=== PATIENT | male | born 1950 | race American Indian/Alaskan Native ===

== ENCOUNTER 2019-04-26 11:44 | Inpatient (IN) | payer MEDICARE, OTHER ==
[~2019-04-26] VITALS: Ht 172.7 cm; Wt 70.3 kg
[2019-04-26] MEDS ORDERED: NORVASC10 MG PO (14:15)
[2019-04-26] MEDS ORDERED: CELEXA40 MG PO (14:15)
[2019-04-26 14:35] VITALS: BMI 23.6
--- NOTE | 2019-04-26 14:45 | NUR ---
PT ADMISSION COMPLETE. VSS. SEE FLOWSHEET. FALL PRECAUTIONS IN PLACE. PT DENIES FURTHER NEEDS. BED IS IN THE LOWEST POSITION. CALL LIGHT AND BEDSIDE TABLE ARE WITHIN REACH. SIDE RAILS X 2. CJ ALARM IS ON AND WORKING. WILL CONT TO MONITOR.
--- NOTE | 2019-04-26 15:00 | NUR ---
22G TO LEFT FA X 1 ATTEMPT. PT TOLERATED WELL.
[2019-04-26 15:05] VITALS: BP 103/76
--- NOTE | 2019-04-26 18:04 | NUR ---
PT REFUSES NON SKID SOCKS AT THIS TIME.
--- NOTE | 2019-04-26 18:16 | NUR ---
PT WITH EPISODE OF BOWEL AND BLADDER INCONTINENCE. NEW COMPLETE BED CHANGE. PT CLEANED AND NEW BRIEF PLACED. CJ ALARM IS ON AND WORKING. BED IS IN THE LOWEST POSITION. CALL LIGHT AND BEDSIDE TABLE ARE WITHIN REACH. SIDE RAILS X 2. PT DENIES FURTHER NEEDS. WILL CONT TO MONITOR.
--- NOTE | 2019-04-26 20:00 | NUR ---
ASSESSMENT PER FLOWSHEET. IV PATENT LEFT AC OF NS AT 25CC'S/HR. RT HAND CONTRACTED FROM OLD CVA. RT LEG WEAK.INC BOWEL AND BLADDER COMPLETE LINENS CHANGED.
[2019-04-26 20:43] VITALS: BP 131/75
--- NOTE | 2019-04-26 22:00 | NUR ---
RESTING QUIETLY RESPIRATIONS WITH EASE AND UNLABORED.
--- NOTE | 2019-04-27 | NUR ---
INC URINE COMPLETE LINENS CHANGED.
--- NOTE | 2019-04-27 | HP ---
PATIENT: MILLA PANDEY MEDICAL RECORD: [id number] ACCOUNT: [id number] LOCATION:D.MS [facility] : 54 ADMISSION DATE: 04/26/19 PCP: JOAQUIN PATEL MD HISTORY AND PHYSICAL EXAMINATION DATE OF ADMISSION: 04/26/2019. CHIEF COMPLAINT: Pain in her right leg, unable to bear weight. HISTORY OF PRESENT ILLNESS: This is a 69-year-old white male followed by Dr. Patel, who was brought in by his daughter. On 04/23/2019, he was trying to get into his car, somehow he slipped down, but not all the way to the ground. He states he did not fall and land on the ground. The patient has had a stroke and has very little use of his right arm and leg. He has an AFO that he wears on his right leg. Since 04/23, he is really not able to bear weight on his leg. He complains of pain, especially laterally and just below the knee. His daughter who currently lives in [place] but is in [facility] now is in town until she leaves on 05/29/2019. The patient lives alone in [place], send him over to [place] for CT of his tib-fib because plain film x-ray was not able to be done correctly because of his weakness and the CT shows severely osteopenic bones and there are acute fractures of the lateral tibial plateau and proximal fibular head. The patient is now admitted and orthopedics is consulted. PAST MEDICAL AND SURGICAL HISTORY: The patient has suffered a stroke on 12/11/2014 and he has significant deficits on the right side. He also has depression and has hypertension. PAST SURGICAL HISTORY: He fell and broke his right hip and had surgery by Dr. Pressley on 08/29/2016, and later that year, he had the blade removed from the right hip area. ALLERGIES: REPORTED TO [facility]. MEDICATIONS: Citalopram 40 mg a day and amlodipine 10 mg a day. HABITS: Former smoker. Occasional alcohol. Denies drug use. FAMILY HISTORY: Father with arthritis. Mother with dementia. SOCIAL HISTORY: The patient lives alone in [place]. REVIEW OF SYSTEMS: GENERAL: No major weight changes. HEENT: No particular sinus or allergy problems. RESPIRATORY: No history of emphysema or asthma. CARDIAC: He has no known heart trouble. GASTROINTESTINAL: Denies diarrhea, constipation, or heartburn. GENITOURINARY: No significant problems there. MUSCULOSKELETAL: He had a right foot drop and considerable right-sided deficits from stroke in 2015. PSYCHIATRIC: He has depression. PHYSICAL EXAMINATION: VITAL SIGNS: Temperature 99.1, pulse 92, respirations 18, blood pressure HISTORY AND PHYSICAL [id number] DANNIE,MILLA M 103/76, and O2 sat 97%. The patient is awake and alert. He is in wheelchair in our office. HEENT: Unremarkable. NECK: Supple. No JVD or bruit. HEART: Regular rate and rhythm. LUNGS: Clear. ABDOMEN: Soft. EXTREMITIES: The right knee looks a little swollen. There is tenderness to palpation anterolaterally just below the knee. There is no significant ecchymosis. NEUROLOGIC: The patient has significant deficits on the right arm and right leg since suffering a stroke in 2014. LABS: Pending. CT of the right tib-fib without contrast shows acute fractures of the lateral tibial plateau and proximal fibular head on the right. There is significant diffuse osteopenia and a suggestion of small knee effusion. ASSESSMENT: 1. Tibial plateau fracture. 2. Proximal fibular head fracture, right. 3. Old cerebrovascular accident with right-sided weakness. 4. History of hypertension. 5. History of depression. PLAN: The patient is admitted. Orthopedics is consulted. Tests and procedures as warranted. TRANSINT:[id number] Voice Confirmation ID: [id number] DOCUMENT ID: [id number] SARA BARNARD MD at 0000 CC: [id number] DICTATION DATE: 04/26/191703 SQL SSRS SSIS DEVELOPER: 04/26/192011 ADM IN [place] [id number] [place] [id number]
[2019-04-27 01:15] VITALS: BP 116/75
--- NOTE | 2019-04-27 03:17 | NUR ---
EYES CLOSED RESPIRATIONS WITH EASE AND UNLABORED.
[2019-04-27 05:02] VITALS: BP 130/64
[2019-04-27 05:40] LABS: BASOPHILS 0.4 % (0-2); EOSINOPHILS 2.1 % (0-7); HEMATOCRIT 39.6 % (42.0-54.0); HEMOGLOBIN 13.2 g/dL (13.5-17.5); IMMATURE GRANULOCYTES 0.2 % (0-5); LYMPHOCYTES 27.3 % (15-50); MCH 32.8 pg (26.0-34.0); MCHC 33.3 g/dL (31.0-37.0); MCV 98.3 fL (80.0-100.0); MEAN PLATELET VOLUME 9.7 fL (7.4-10.4); MONOCYTES 9.4 % (2-11); NEUTROPHILS 60.6 % (40-80); PLATELET COUNT 282 10x3/uL (130-400); RBC 4.03 10x6/uL (4.20-6.10); RDW 13.7 % (11.5-14.5); WBC 8.1 10x3/uL (4.8-10.8)
[2019-04-27 05:55] LABS: CALC OSMOLALITY 284 mosm/kg (275-300); CALCIUM 8.5 mg/dL (8.5-10.1); CARBON DIOXIDE 30.3 mmol/L (21.0-32.0); CHLORIDE - SERUM 106 mmol/L (98-107); CREATININE - SERUM 0.7 mg/dL (0.6-1.3); GLUCOSE 95 mg/dL (74-106); SODIUM 143 mmol/L (136-145); UREA NITROGEN 13 mg/dL (7-18); eGFR NON AFRICAN AMERICAN > 90 mL/min (90-120)
[2019-04-27 08:22] VITALS: BP 121/78
--- NOTE | 2019-04-27 08:48 | NUR ---
PATIENT REFUSED TO HAVE IV FLUIDS RUNNING, STATED HE IS TIRED OF HEARING IT BEEP, PT ROLLED OVER AND WENT BACK TO SLEEP NO OTHER NEEDS LLEE SUB PRIOR
[2019-04-27 11:33] VITALS: BP 100/58
--- NOTE | 2019-04-27 14:56 | MORECARE ---
CASE MANAGEMENT DISCHARGE SUMMARY PATIENT: MILLA PANDEY UNIT: [id number] ADM DATE: 04/26/19 AGE: 69 : 52 SEX: M ROOM/BED: D.2230 AUTHOR: LELE VEGA PHYSICIAN: REFERRING PHYSICIAN: JOAQUIN PATEL MD DATE OF SERVICE: 04/27/19 Discharge Plan Patient Name: MILLA PANDEY [facility] [facility] 1950 Planned Disposition: Home Anticipated Discharge Date: 04/28/19 Discharge Date: Expected LOS: 2 Initial Reviewer: [email or web address] Initial Review Date: 04/27/2019 Generated: 04/27/19 3:56 pm DCPIA - Discharge Planning Initial Assessment Updated by [email or web address]: Leticia Miller on 04/27/19 2:55 pm * Is the patient Alert and Oriented? Yes * How many steps to enter\exit or inside your home? 0/0 * PCP Dr. Patel * Pharmacy [facility] on [address] * Preadmission Environment Home Alone * ADLs Partial Dependent * Partial ADLs (Assistance needed) Ambulation * Equipment Wheelchair * List name and contact numbers for known caregivers / representatives who currently or will assist patient after discharge: Eve Pandey - [facility] [place] - [phone] [place] [facility] - [phone] * Verbal permission to speak to the caregivers and representatives has been obtained from the patient. Yes * Community resources currently utilized None * Additional services required to return to the preadmission environment? Yes * Can the patient safely return to the preadmission environment? Yes * Has this patient been hospitalized within the prior 30 days at any hospital? No Patient Name: MILLA PANDEY Page [id number] at 1456 All edits/amendments must be made on the electronic document DICTATION DATE: 04/27/191455 SALON SUPERVISOR: DEVON 04/27/191455 RPT#: [id number] DC DATE: STATUS: ADM IN [facility] [address] [place] [address] END OF REPORT
--- NOTE | 2019-04-27 15:05 | MORECARE ---
CASE MANAGEMENT DISCHARGE SUMMARY PATIENT: MILLA PANDEY UNIT: [id number] ADM DATE: 04/26/19 AGE: 69 : 52 SEX: M ROOM/BED: D.2230 AUTHOR: LELE VEGA PHYSICIAN: REFERRING PHYSICIAN: JOAQUIN PATEL MD DATE OF SERVICE: 04/27/19 Discharge Plan Patient Name: MILLA PANDEY Facility: [facility]:[place] : 1950 Planned Disposition: Home Anticipated Discharge Date: 04/28/19 Discharge Date: Expected LOS: 2 Initial Reviewer: [email or web address] Initial Review Date: 04/27/2019 Generated: 04/27/19 4:05 pm Comments DCP- Discharge Planning Updated by [email or web address]: Leticia Miller on 04/27/19 1:[address] Patient Name: MILLA PANDEY Admission Status: Elective Accout number: [id number] Admission Date: 04-26-2019 : 1950 Admission Diagnosis: Attending: JOAQUIN PATEL Current LOS: 1 Anticipated DC Date: 04-28-2019 Planned Disposition: Home Primary Insurance: MEDICARE A & B Discharge Planning Comments: CM met with patient to complete initial dc planning assessment. CM educated patient on the CM role and verbal consent given by patient to complete assessment. Patient lives at home alone. At discharge patient plans to return and feels this is a safe discharge. CM discussed availability of home health, rehab services, and medical equipment. I informed patient that Dr. Patel had asked me to see him about going to rehab. He states he does not want rehab, he is accustomed to taking care of himself. He states he will need an ambulance to get home. I informed him that it's possible his insurance would not pay for an ambulance transfer home and he states "it's ok, I can pay for it. I called central supply for the hinged knee brace as ordered and informed Alyssa (primary nurse) to ask PT to put brace on patient. I spoke with Emi at Dr. Patel's office and informed her that the patient is declining rehab. CM will continue to follow and will assist as needed with dc plans/needs. Direct Support Staff Member: Leticia Miller DCPIA - Discharge Planning Initial Assessment Updated by [email or web address]: Leticia Paul on 04/27/19 2:55 pm * Is the patient Alert and Oriented? Yes * How many steps to enter\\exit or inside your home? 0/0 * PCP Dr. Patel * Pharmacy [facility] on [address] * Preadmission Environment Home Alone * ADLs Partial Dependent * Partial ADLs (Assistance needed) Ambulation * Equipment Wheelchair * List name and contact numbers for known caregivers / representatives who currently or will assist patient after discharge: Eve Pandey - DTR - [phone] [place] [facility] - [phone] * Verbal permission to speak to the caregivers and representatives has been obtained from the patient. Yes * Community resources currently utilized None * Additional services required to return to the preadmission environment? Yes * Can the patient safely return to the preadmission environment? Yes * Has this patient been hospitalized within the prior 30 days at any hospital? No Last DP export: 04/27/19 1:56 p Patient Name: MILLA PANDEY Page 38869 at 1505 All edits/amendments must be made on the electronic document DICTATION DATE: 04/27/19 1505 PERFORMANCE TEST ARCHITECT: DEVON 04/27/19 1505 RPT#: [id number] DC DATE: STATUS: ADM IN [facility] [address] [place] [address] END OF REPORT
[2019-04-27 15:12] VITALS: Ht 172.7 cm; Wt 70.3 kg
--- NOTE | 2019-04-27 16:00 | NUR ---
I have reviewed this patient and I concur with the Shift Assessment completed by the Licensed Practical Nurse today this shift.
--- NOTE | 2019-04-27 20:00 | NUR ---
ASSESSMENT PER FLOWSHEET. RT HAND CONTRACTED AND FLACCID RT LEG WITH MODERATE WEAKNESS. SALINE LOCK TO LEFT AC. PT REFUSES IV FLUIDS. CJ MAT IN USE SR UP X2 CALL LIGHT WITHIN REACH ALARMS SET. REFUSES SCD'S.
[2019-04-27 20:34] VITALS: BP 104/69
--- NOTE | 2019-04-27 22:00 | NUR ---
INC URINE COMPLETE BED CHANGE DONE.
--- NOTE | 2019-04-28 | NUR ---
EYES CLOSED RESPIRATIONS WITH EASE AND UNLABORED.
[2019-04-28 00:41] VITALS: BP 112/70
--- NOTE | 2019-04-28 03:00 | NUR ---
INC URINE COMPLETE LINENS CHANGE DONE.
--- NOTE | 2019-04-28 05:02 | NUR ---
RESTING QUIETLY DENIES NEEDS.
[2019-04-28 05:12] VITALS: BP 124/90
[2019-04-28 08:34] VITALS: BP 98/62
--- NOTE | 2019-04-28 08:38 | MORECARE ---
CASE MANAGEMENT DISCHARGE SUMMARY PATIENT: MILLA PANDEY UNIT: [id number] ADM DATE: 04/26/19 AGE: 69 : 52 SEX: M ROOM/BED: D.2230 AUTHOR: LELE VEGA PHYSICIAN: REFERRING PHYSICIAN: JOAQUIN PATEL MD DATE OF SERVICE: 04/28/19 Discharge Plan Patient Name: MILLA PANDEY Facility: [facility]:[place] : 1950 Planned Disposition: Home Anticipated Discharge Date: 04/28/19 Discharge Date: Expected LOS: 2 Initial Reviewer: [email or web address] Initial Review Date: 04/27/2019 Generated: 04/28/19 9:37 am Comments DCP- Discharge Planning Updated by [email or web address]: Leticia Miller on 04/28/19 7:[address] I spoke with the patient today concerning rehab. He would like to go to our inpatient rehab at [facility]. If he is denied, he has signed a NOEL for [facility]. He states "I want the one that will get me home the fastest." I spoke with Loretta, and she will screen him today. CM will continue to follow and assist with discharge planning/needs. DCP- Discharge Planning Updated by [email or web address]: Leticia Miller on 04/27/19 1:[address] Patient Name: MILLA PANDEY Admission Status: Elective Accout number: [id number] Admission Date: 04-26-2019 : 1950 Admission Diagnosis: Attending: JOAQUIN PATEL Current LOS: 1 Anticipated DC Date: 04-28-2019 Planned Disposition: Home Primary Insurance: MEDICARE A & B Discharge Planning Comments: CM met with patient to complete initial dc planning assessment. CM educated patient on the CM role and verbal consent given by patient to complete assessment. Patient lives at home alone. At discharge patient plans to return and feels this is a safe discharge. CM discussed availability of home health, rehab services, and medical equipment. I informed patient that Dr. Patel had asked me to see him about going to rehab. He states he does not want rehab, he is accustomed to taking care of himself. He states he will need an ambulance to get home. I informed him that it's possible his insurance would not pay for an ambulance transfer home and he states "it's ok, I can pay for it. I called central supply for the hinged knee brace as ordered and informed Alyssa (primary nurse) to ask PT to put brace on patient. I spoke with Emi at Dr. Patel's office and informed her that the patient is declining rehab. CM will continue to follow and will assist as needed with dc plans/needs. Analysis Manager: Leticia Miller DCPIA - Discharge Planning Initial Assessment Updated by [id number]: Leticia Miller on 04/27/19 2:55 pm * Is the patient Alert and Oriented? Yes * How many steps to enter\\exit or inside your home? 0/0 * PCP Dr. Patel * [facility] * Preadmission Environment Home Alone * ADLs Partial Dependent * Partial ADLs (Assistance needed) Ambulation * Equipment Wheelchair * List name and contact numbers for known caregivers / representatives who currently or will assist patient after discharge: Eve Pandey - DTR - [phone] [place] [facility] - [phone] * Verbal permission to speak to the caregivers and representatives has been obtained from the patient. Yes * Community resources currently utilized None * Additional services required to return to the preadmission environment? Yes * Can the patient safely return to the preadmission environment? Yes * Has this patient been hospitalized within the prior 30 days at any hospital? No Coverage Notice Reviewer: [id number] - Lteicia Miller Notice Issued Date-Time: 04/28/2019 8:37 Notice Type: Patient Choice Letter Notice Delivered To: Patient Relationship to Patient: Self Golf Stud Riveter Name: Delivery Method: HAND - Hand Delivered Muriel Days: Prior Verbal Notification: Recipient Understood Notice: Yes Recipient Signature: Yes Med Rec Note Co-signed by Attending: Coverage Notice Comment: NOEL for [facility]. He would like a referral to [facility] inpatient rehab first. Last DP export: 04/27/19 2:05 p Patient Name: MILLA PANDEY Page 17900 at 0838 All edits/amendments must be made on the electronic document DICTATION DATE: 04/28/19 0837 BATH STEWARD: DEVON 04/28/19 0837 RPT#: [id number] DC DATE: STATUS: ADM IN [facility] [address] [facility] [place] [address] END OF REPORT
--- NOTE | 2019-04-28 09:08 | NUR ---
AWAKE AND ALERT. ORIENTED X3. LUNGS ARE CLEAR BILATERALLY, NO COUGH NOTED. SKIN IS INTACT WITHOUT REDNESS. SL TO LEFT AC IS PATENT WITHOUT REDNESS AT INSERTION SITE. ATE ALL OF BREAKFAST THIS AM. DENIES NEEDS.
--- NOTE | 2019-04-28 11:35 | NUR ---
Rehab Note- Acute INpatient Rehab prescreen order received. The patient is a good inpatient acute rehab candidate. Have spoken with TED Kelly. Thank you for this referral! Loretta Nair RN Clinical Liaison, [facility] Rehab
[2019-04-28 13:09] VITALS: BP 87/56
[2019-04-28] MEDS ORDERED: HYDROCODON-ACE1 EA10 PO (13:35)
--- NOTE | 2019-04-28 14:46 | MORECARE ---
CASE MANAGEMENT DISCHARGE SUMMARY PATIENT: MILLA PANDEY UNIT: [id number] ADM DATE: 04/26/19 AGE: 69 : 52 SEX: M ROOM/BED: D.2230 AUTHOR: LELE VEGA PHYSICIAN: REFERRING PHYSICIAN: JOAQUIN PATEL MD DATE OF SERVICE: 04/28/19 Discharge Plan Patient Name: MILLA PANDEY Facility: [facility]:[place] : 1950 Planned Disposition: Home Anticipated Discharge Date: 04/28/19 Discharge Date: Expected LOS: 2 Initial Reviewer: [email or web address] Initial Review Date: 04/27/2019 Generated: 04/28/19 3:45 pm Comments DCP- Discharge Planning Updated by [email or web address]: Leticia Miller on 04/28/19 1:[address] Discharging today to inpatient rehab. He is in agreement to discharge. He states his daughter is on her way to the hospital and he will let her know. CM will continue to follow and assist with discharge planning/needs. DCP- Discharge Planning Updated by [id number]: Leticia Miller on 04/28/19 7:[address] I spoke with the patient today concerning rehab. He would like to go to our inpatient rehab at [facility]. If he is denied, he has signed a NOEL for [facility]. He states "I want the one that will get me home the fastest." I spoke with Loretta, and she will screen him today. CM will continue to follow and assist with discharge planning/needs. DCP- Discharge Planning Updated by [email or web address]: Leticia Miller on 04/27/19 1:[address] Patient Name: MILLA PANDEY Admission Status: Elective Accout number: [id number] Admission Date: 04-26-2019 : 1950 Admission Diagnosis: Attending: JOAQUIN PATEL Current LOS: 1 Anticipated DC Date: 04-28-2019 Planned Disposition: Home Primary Insurance: MEDICARE A & B Discharge Planning Comments: CM met with patient to complete initial dc planning assessment. CM educated patient on the CM role and verbal consent given by patient to complete assessment. Patient lives at home alone. At discharge patient plans to return and feels this is a safe discharge. CM discussed availability of home health, rehab services, and medical equipment. I informed patient that Dr. Patel had asked me to see him about going to rehab. He states he does not want rehab, he is accustomed to taking care of himself. He states he will need an ambulance to get home. I informed him that it's possible his insurance would not pay for an ambulance transfer home and he states "it's ok, I can pay for it. I called central supply for the hinged knee brace as ordered and informed Alyssa (primary nurse) to ask PT to put brace on patient. I spoke with Emi at Dr. Patel's office and informed her that the patient is declining rehab. CM will continue to follow and will assist as needed with dc plans/needs. Nurse Emergency: Leticia Miller DCPIA - Discharge Planning Initial Assessment Updated by [email or web address]: Leticia Miller on 04/27/19 2:55 pm * Is the patient Alert and Oriented? Yes * How many steps to enter\\exit or inside your home? 0/0 * PCP Dr. Patel * [facility] * Preadmission Environment Home Alone * ADLs Partial Dependent * Partial ADLs (Assistance needed) Ambulation * Equipment Wheelchair * List name and contact numbers for known caregivers / representatives who currently or will assist patient after discharge: Eve Pandey - DTR - [phone] [place] [facility] - [phone] * Verbal permission to speak to the caregivers and representatives has been obtained from the patient. Yes * Community resources currently utilized None * Additional services required to return to the preadmission environment? Yes * Can the patient safely return to the preadmission environment? Yes * Has this patient been hospitalized within the prior 30 days at any hospital? No Coverage Notice Reviewer: [id number] - Leticia Miller Notice Issued Date-Time: 04/28/2019 8:37 Notice Type: Patient Choice Letter Notice Delivered To: Patient Relationship to Patient: Self Men'S Leather Dress Belt Maker Name: Delivery Method: HAND - Hand Delivered Muriel Days: Prior Verbal Notification: Recipient Understood Notice: Yes Recipient Signature: Yes Med Rec Note Co-signed by Attending: Coverage Notice Comment: NOEL for [facility]. He would like a referral to [facility] inpatient rehab first. Last DP export: 04/28/19 7:38 Patient Name: MILLA PANDEY Page [id number] at 1446 All edits/amendments must be made on the electronic document DICTATION DATE: 04/28/191444 TRAFFIC CIRCUIT ENGINEER: DEVON 04/28/191444 RPT#: [id number] DC DATE: STATUS: ADM IN [facility] [address] [place] [address] END OF REPORT
--- NOTE | 2019-04-28 16:10 | NUR ---
REPORT CALLED TO [facility] RE[facility] LPN ON REHAB. ALL QUESTIONS ANSWERED. DISCHARGE INSTRUCTIONS GIVEN TO PATIENT VERBALLY. ALL QUESTIONS ANSWERED. PATIENT VERBALIZED UNDERSTANDING OF SAME. ALL BELONGINGS WITH PATIENT. TRANSFERRED TO REHAB VIA BED ROOM 1116.
--- NOTE | 2019-04-29 16:39 | MORECARE ---
CASE MANAGEMENT DISCHARGE SUMMARY PATIENT: MILLA PANDEY UNIT: [id number] ADM DATE: 04/26/19 AGE: 69 : 54 SEX: M ROOM/BED: D.2230 AUTHOR: SILVIADOC PHYSICIAN: REFERRING PHYSICIAN: JOAQUIN PATEL MD DATE OF SERVICE: 04/29/19 Discharge Plan Patient Name: MILLA PANDEY Facility: [facility]:[place] : 1950 Planned Disposition: Home Anticipated Discharge Date: 04/28/19 Discharge Date: 04/28/2019 Expected LOS: 2 Initial Reviewer: [email or web address] Initial Review Date: 04/27/2019 Generated: 04/29/19 5:38 pm Comments DCP- Discharge Planning Updated by [email or web address]: Leticia Miller on 04/28/19 1:[address] Discharging today to inpatient rehab. He is in agreement to discharge. He states his daughter is on her way to the hospital and he will let her know. CM will continue to follow and assist with discharge planning/needs. DCP- Discharge Planning Updated by [id number]: Leticia Miller on 04/28/19 7:[address] I spoke with the patient today concerning rehab. He would like to go to our inpatient rehab at [facility]. If he is denied, he has signed a NOEL for [facility]. He states "I want the one that will get me home the fastest." I spoke with Loretta, and she will screen him today. CM will continue to follow and assist with discharge planning/needs. DCP- Discharge Planning Updated by [id number]: Leticia Miller on 04/27/19 1:[address] Patient Name: MILLA PANDEY Admission Status: Elective Accout number: [id number] Admission Date: 04-26-2019 : 1950 Admission Diagnosis: Attending: JOAQUIN PATEL Current LOS: 1 Anticipated DC Date: 04-28-2019 Planned Disposition: Home Primary Insurance: MEDICARE A & B Discharge Planning Comments: CM met with patient to complete initial dc planning assessment. CM educated patient on the CM role and verbal consent given by patient to complete assessment. Patient lives at home alone. At discharge patient plans to return and feels this is a safe discharge. CM discussed availability of home health, rehab services, and medical equipment. I informed patient that Dr. Patel had asked me to see him about going to rehab. He states he does not want rehab, he is accustomed to taking care of himself. He states he will need an ambulance to get home. I informed him that it's possible his insurance would not pay for an ambulance transfer home and he states "it's ok, I can pay for it. I called central supply for the hinged knee brace as ordered and informed Alyssa (primary nurse) to ask PT to put brace on patient. I spoke with Emi at Dr. Patel's office and informed her that the patient is declining rehab. CM will continue to follow and will assist as needed with dc plans/needs. Brim Welt Sewing Machine Operator: Leticia Miller DCPIA - Discharge Planning Initial Assessment Updated by [id number]: Leticia Miller on 04/27/19 2:55 pm * Is the patient Alert and Oriented? Yes * How many steps to enter\\exit or inside your home? 0/0 * PCP Dr. Paetl * Pharmacy [facility] on [address] * Preadmission Environment Home Alone * ADLs Partial Dependent * Partial ADLs (Assistance needed) Ambulation * Equipment Wheelchair * List name and contact numbers for known caregivers / representatives who currently or will assist patient after discharge: Eve Pandey - DTR - [phone] [facility] - [phone] * Verbal permission to speak to the caregivers and representatives has been obtained from the patient. Yes * Community resources currently utilized None * Additional services required to return to the preadmission environment? Yes * Can the patient safely return to the preadmission environment? Yes * Has this patient been hospitalized within the prior 30 days at any hospital? No Coverage Notice Reviewer: [id number] - Leticia Miller Notice Issued Date-Time: 04/28/2019 8:37 Notice Type: Patient Choice Letter Notice Delivered To: Patient Relationship to Patient: Self Fashion Adviser Name: Delivery Method: HAND - Hand Delivered Muriel Days: Prior Verbal Notification: Recipient Understood Notice: Yes Recipient Signature: Yes Med Rec Note Co-signed by Attending: Coverage Notice Comment: NOEL for [facility]. He would like a referral to [facility] inpatient rehab first. Last DP export: 04/28/19 1:46 Patient Name: MILLA PANDEY Page [id number] at 1639 All edits/amendments must be made on the electronic document DICTATION DATE: 04/29/191637 STONE CARVER: DEVON 04/29/191637 RPT#: [id number] DC DATE:04/28/19 STATUS: DIS IN [facility] [address] [place] [address] END OF REPORT
== END 2019-04-28 16:18 | DRG 543 ==
LOC: OBSVTIME → D.CT 11:44 → OBSVTIME 13:35 → D.MS 13:35
PROVIDERS: ADMIT Family Medicine; ATTEND Family Medicine
DX: M84.661A Pathological fracture in other disease, right tibia, initial encounter for fracture (principal); I69.351 Hemiplegia and hemiparesis following cerebral infarction affecting right dominant side; M85.861 Other specified disorders of bone density and structure, right lower leg; M84.663 Pathological fracture in other disease, right fibula; I10 Essential (primary) hypertension; W19.XXXA Unspecified fall, initial encounter; Z91.81 History of falling

== ENCOUNTER 2019-04-28 13:57 | Inpatient (IN) | payer MEDICARE, OTHER ==
[~2019-04-28] VITALS: Ht 172.7 cm; Wt 72.6 kg
[~2019-04-28 13:57] MED LIST: CELEXA40 MG PO; HYDROCODON-ACE1 EA10 PO; NORVASC10 MG PO
--- NOTE | 2019-04-28 16:20 | NUR ---
RECIEVED TO ROOM 1116/BED.ORIENTED TO ROOM AND SURROUNDINGS.CL IN REACH.
--- NOTE | 2019-04-28 20:00 | NUR ---
PATIENT RECEIVED LYING ON HIS RIGHT SIDE. PATIENT INCONTINENT OF URINE. PATIENT GIVEN URINAL TO USE. ASSESSMENT PERFORMED BY CHARGE NURSE. NO C/O PAIN OR DISTRESS. CALL LIGHT WITHIN REACH. WILL CONTINUE TO MONITOR.
[2019-04-28 21:16] VITALS: BP 110/74
[2019-04-28 21:26] VITALS: BP 110/74
--- NOTE | 2019-04-29 02:29 | NUR ---
PATIENT EYES CLOSED. RESPIRATIONS 18 & EVEN. BED LOW. CALL LIGHT & URINAL WITHIN REACH. WILL CONTINUE TO MONITOR.
[2019-04-29 06:05] LABS: BASOPHILS 0.4 % (0-2); EOSINOPHILS 2.5 % (0-7); HEMATOCRIT 39.5 % (42.0-54.0); HEMOGLOBIN 13.2 g/dL (13.5-17.5); IMMATURE GRANULOCYTES 0.3 % (0-5); LYMPHOCYTES 27.2 % (15-50); MCH 32.4 pg (26.0-34.0); MCHC 33.4 g/dL (31.0-37.0); MCV 97.1 fL (80.0-100.0); MEAN PLATELET VOLUME 9.5 fL (7.4-10.4); MONOCYTES 9.2 % (2-11); NEUTROPHILS 60.4 % (40-80); PLATELET COUNT 296 10x3/uL (130-400); RBC 4.07 10x6/uL (4.20-6.10); RDW 13.6 % (11.5-14.5); WBC 7.7 10x3/uL (4.8-10.8)
[2019-04-29 06:39] LABS: CALC OSMOLALITY 278 mosm/kg (275-300); CALCIUM 8.6 mg/dL (8.5-10.1); CARBON DIOXIDE 27.4 mmol/L (21.0-32.0); CHLORIDE - SERUM 105 mmol/L (98-107); CREATININE - SERUM 0.7 mg/dL (0.6-1.3); GLUCOSE 104 mg/dL (74-106); POTASSIUM - SERUM 4.2 mmol/L (3.5-5.1); SODIUM 140 mmol/L (136-145); UREA NITROGEN 13 mg/dL (7-18); eGFR NON AFRICAN AMERICAN > 90 mL/min (90-120)
[2019-04-29 08:00] VITALS: BP 109/78
--- NOTE | 2019-04-29 08:00 | NUR ---
SHIFT ASSMT COMPLETED.
[2019-04-29 10:01] VITALS: Ht 172.7 cm; Wt 72.6 kg
--- NOTE | 2019-04-29 16:00 | NUR ---
CONT TO MONITOR
[2019-04-29 19:48] VITALS: BP 87/49
--- NOTE | 2019-04-29 19:50 | NUR ---
PT IS RESTING IN BED WITH EYES OPEN. ALERT AND ORIENTED X 3. DENIES ACUTE DISCOMFORT AT THIS TIME. NO COMPLAINT OF PAIN OR DISCOMFORT VOICED AT THIS TIME. VSS. SR'S ARE UP X 2 IN BED. CALL LIGHT AND BEDSIDE TABLE ARE WITHIN EASY REACH.
--- NOTE | 2019-04-29 21:59 | NUR ---
PT IS RESTING QUIETLY IN BED WITH EYES CLOSED. RESPS ARE EVEN AND UNLABORED. NO ACUTE DISTRESS NOTED.
--- NOTE | 2019-04-30 | NUR ---
I have reviewed this patient and I concur with the Shift Assessment completed by the Licensed Practical Nurse today this shift.
--- NOTE | 2019-04-30 03:31 | NUR ---
PT LYING IN BED EYES CLOSED RESTING QUIETLY. CL IN REACH
--- NOTE | 2019-04-30 06:05 | NUR ---
PT RESTING IN BED WITH EYES CLOSED.
--- NOTE | 2019-04-30 07:30 | NUR ---
RESTING QUIETLY IN BED, EYES CLOSED. NO S/S DISTRESS. CALL LIGHT IN REACH
[2019-04-30 08:18] VITALS: BP 109/70
--- NOTE | 2019-04-30 12:30 | NUR ---
SITTING UP FOR LUNCH. DENIES C/O. CALL LIGHT IN REACH
--- NOTE | 2019-04-30 15:51 | NUR ---
RESTING QUIETLY IN BED. NO S/S DISTRESS. CALL LIGHT IN REACH
--- NOTE | 2019-04-30 19:26 | NUR ---
PT IS RESTING IN BED WITH EYES OPEN. ALERT AND ORIENTED X 3. DENIES PAIN OR DISCOMFORT AT THIS TIME, BUT STATES HIS RIGHT LEG ACHES REAL BAD WHEN HE MOVES IT. INC. CARE GIVEN WITH MAX ASSIST. SR'S ARE UP X 2 IN BED. CALL LIGHT AND BEDSIDE TABLE ARE WITHIN EASY REACH.
[2019-04-30 19:45] VITALS: BP 114/75
--- NOTE | 2019-04-30 21:45 | NUR ---
RESTING IN BED WITH EYES CLOSED.
--- NOTE | 2019-04-30 23:21 | NUR ---
I have reviewed this patient and I concur with the Shift Assessment completed by the Licensed Practical Nurse today this shift.
--- NOTE | 2019-05-01 03:08 | NUR ---
PT RESTING IN BED WITH EYES CLOSED. AWOKE EASILY TO VERBAL STIMULI. INC. CARE GIVEN.
--- NOTE | 2019-05-01 05:47 | NUR ---
PT RESTING IN BED WITH EYES CLOSED. AWOKE EASILY TO VERBAL STIMULI. INC. CARE GIVEN WITH MOD ASSIST. NO FURTHER NEEDS VOICED.
[2019-05-01 08:00] VITALS: BP 91/56
--- NOTE | 2019-05-01 08:35 | NUR ---
SITTING UP IN BED FOR BREAKFAST. DENIES INCREASED PAIN TO LEG. DENIES NEEDS. CALL LIGHT IN REACH.
--- NOTE | 2019-05-01 17:20 | NUR ---
SITTING UP IN BED EATING SUPPER. DENIES NEEDS OR C/O. NOT WEARING RLE BRACE AT PRESENT. HAD SHOWER TODAY. ELEUTERIO RUBIN FLACCID. INCONT OF B/B. CALL LIGHT IN REACH
--- NOTE | 2019-05-01 19:52 | NUR ---
PT IS RESTING IN BED WITH EYES OPEN. ALERT AND ORIENTED X 3. DENIES ACUTE DISCOMFORT AT THIS TIME. INC. CARE DONE. SR'S ARE UP X 2 IN BED. CALL LIGHT AND BEDSIDE TABLE ARE WITHIN EASY REACH.
[2019-05-01 20:51] VITALS: BP 122/63
--- NOTE | 2019-05-01 22:00 | NUR ---
PT RESTING QUIETLY IN BED WITH EYES CLOSED. RESPS ARE EVEN AND UNLABORED. NO ACUTE DISTRESS NOTED.
--- NOTE | 2019-05-02 00:50 | NUR ---
PT RESTING QUIETLY IN BED WITH EYES CLOSED. NO ACUTE DISTRESS NOTED.
--- NOTE | 2019-05-02 01:46 | NUR ---
I have reviewed this patient and I concur with the Shift Assessment completed by the Licensed Practical Nurse today this shift.
--- NOTE | 2019-05-02 03:49 | NUR ---
PT LYING IN BED ON RIGHT SIDE EYES CLOSED RESTING QUIETLY. CL IN REACH
--- NOTE | 2019-05-02 06:15 | NUR ---
PT INC. OF A LARGE AMOUNT OF URINE. ADDIE CARE AND PAD CHANGE DONE. NO FURTHER NEEDS VOICED.
[2019-05-02 07:47] VITALS: BP 114/72
--- NOTE | 2019-05-02 13:57 | NUR ---
Nutrition Follow-up: Diet: Regular PO intake: 58% average; reports decent appetite, is drinking Ensure. Labs, meds, and skin assessment reviewed +BM, no new wt. Pt remains at low nutrition risk at this time. RD will continue to monitor.
--- NOTE | 2019-05-02 14:50 | NUR ---
LAYING IN BED IN ROOM RESTING QUIETLY. HAS BRACE ON RLE. LLE STILL BRUISED. RUE, RLE ALMOST FLACCID. CALL LIGHT IN REACH
--- NOTE | 2019-05-02 19:30 | NUR ---
PT IS RESTING IN BED WITH EYES OPEN. ALERT AND ORIENTED X 3. DENIES ACUTE PAIN OR DISCOMFORT AT THIS TIME. NO NEEDS VOICED. SR'S ARE UP X 2 IN BED. CALL LIGHT AND BEDSIDE TABLE ARE WITHIN EASY REACH.
[2019-05-02 20:47] VITALS: BP 88/56
--- NOTE | 2019-05-02 21:26 | NUR ---
PT IS RESTING QUIETLY IN BED WITH EYES CLOSED. NO ACUTE DISTRESS NOTED.
--- NOTE | 2019-05-03 01:53 | NUR ---
QUIET HOURS. PT LYING IN BED EYES CLOSED RESTING QUIETLY. RR EVEN AND UNLABORED. CL IN REACH
--- NOTE | 2019-05-03 05:34 | NUR ---
PT LYING IN BED EYES CLOSED RESTING QUIETLY. NO SIGNS OF ACUTE DISTRESS NOTED. CL IN REACH
--- NOTE | 2019-05-03 08:00 | NUR ---
SHIFT ASSMT COMPLETED.
[2019-05-03 08:22] VITALS: BP 120/76
--- NOTE | 2019-05-03 16:00 | NUR ---
WILL CONT TO MONITOR.
--- NOTE | 2019-05-03 20:00 | NUR ---
PATIENT RECEIVED LAYING IN BED. ASSESSMENT & VITAL SIGNS DONE. BED LOW. ALARM ON. CALL LIGHT WITHIN REACH. WILL CONTINUE TO MONITOR.
[2019-05-03 20:37] VITALS: BP 91/51
--- NOTE | 2019-05-04 02:14 | NUR ---
I have reviewed this patient and I concur with the Shift Assessment completed by the Licensed Practical Nurse today this shift.
[2019-05-04 06:45] LABS: BASOPHILS 0.3 % (0-2); EOSINOPHILS 2.7 % (0-7); HEMATOCRIT 39.3 % (42.0-54.0); HEMOGLOBIN 13.1 g/dL (13.5-17.5); IMMATURE GRANULOCYTES 0.3 % (0-5); LYMPHOCYTES 22.9 % (15-50); MCH 32.8 pg (26.0-34.0); MCHC 33.3 g/dL (31.0-37.0); MCV 98.3 fL (80.0-100.0); MEAN PLATELET VOLUME 9.6 fL (7.4-10.4); MONOCYTES 8.3 % (2-11); NEUTROPHILS 65.5 % (40-80); PLATELET COUNT 298 10x3/uL (130-400); RDW 13.6 % (11.5-14.5); WBC 7.8 10x3/uL (4.8-10.8)
[2019-05-04 07:01] LABS: CALC OSMOLALITY 277 mosm/kg (275-300); CALCIUM 8.9 mg/dL (8.5-10.1); CARBON DIOXIDE 30.1 mmol/L (21.0-32.0); CHLORIDE - SERUM 102 mmol/L (98-107); CREATININE - SERUM 0.6 mg/dL (0.6-1.3); GLUCOSE 106 mg/dL (74-106); SODIUM 138 mmol/L (136-145); UREA NITROGEN 17 mg/dL (7-18); eGFR NON AFRICAN AMERICAN > 90 mL/min (90-120)
[2019-05-04 07:49] VITALS: BP 109/67
--- NOTE | 2019-05-04 08:00 | NUR ---
shift assmt completed.
--- NOTE | 2019-05-04 12:00 | NUR ---
UP IN BED EATING LUNCH.
--- NOTE | 2019-05-04 16:00 | NUR ---
WILL CONT TO MONITOR
--- NOTE | 2019-05-04 16:39 | NUR ---
PATIENT ADMITTED TO REHAB FROM ACUTE FLOOR. DR. PATEL IS HIS PCP AND DME AT HOME IS A WHEELCHAIR. CARE TEAM MEETING: PATIENT ATTENDED AND HAD PHONE CONFERENCE WITH PATIENT SON. TENATIVE DISCHARGE DATE IS 05/14/19. IF PATIENT UNABLE TO RETURN HOME AT DISCHARGE WOULD LIKE A REFERRAL TO [facility]. WILL CONTINUE TO FOLLOW WITH PATIENT
--- NOTE | 2019-05-04 20:02 | NUR ---
PATIENT RECEIVED LYING ON RIGHT SIDE. ASSESSMENT & VITAL SIGNS DONE. NO C/O PAIN OR DISTRESS. BED LOW. ALARM ON. CALL LIGHT & URINAL WITHIN REACH. WILL CONTINUE TO MONITOR.
[2019-05-04 21:13] VITALS: BP 78/38
--- NOTE | 2019-05-05 02:14 | NUR ---
I have reviewed this patient and I concur with the Shift Assessment completed by the Licensed Practical Nurse today this shift.
--- NOTE | 2019-05-05 03:43 | NUR ---
PATIENT EYES CLOSED. RESPIRATIONS 18 & EVEN. BED LOW. CALL LIGHT WITHIN REACH. WILL CONTINUE TO MONITOR.
[2019-05-05 08:39] VITALS: BP 122/62
--- NOTE | 2019-05-05 10:39 | NUR ---
SITTING IN WC. NO C/O PAIN. ASSISTED TO BR X 2 STAFF. WIPED PER STAFF. LG BM. CL IN REACH.
--- NOTE | 2019-05-05 18:33 | NUR ---
NO CHANGE IN ASSESSMENT. CL IN REACH. RESP EVEN AND UNLABORED.
[2019-05-05 19:40] VITALS: BP 102/69
--- NOTE | 2019-05-05 19:41 | NUR ---
GREETED PATIENT AND INTRODUCED MYSELF HIS NURSE. PATIENT IS LAYING IN SUPINE POSITION WITH HOB AT 10 DEGREES. RESPIRATIONS EVEN. NO S/S OF DISTRESS. DENIES ANY PAIN AT THIS TIME. DENIES ANY FURTHER NEEDS. CALL LIGHT IN REACH.
--- NOTE | 2019-05-06 00:45 | NUR ---
PT. RESTING QUIETLY WITH EYES CLOSED. RESPIRATIONS EVEN. NO S/S OF DISTRESS. CALL LIGHT IN REACH.
[2019-05-06 08:00] VITALS: BP 121/71
--- NOTE | 2019-05-06 08:00 | NUR ---
PATIENT IS ALERT/ORIENT. INCONT OF BLADDER. HELPED OUT OF BED TO CHANGE CLOTHES AND BED LINENS. MAX ASST OF TWO. RIGHT SIDE FLACCID. TAKEN DOWN TO THERAPY ROOM BY PHYSICAL THERAPIST. WILL CONTINUE WITH PLAN OF CARE
--- NOTE | 2019-05-06 12:57 | NUR ---
OCCUPATIONAL THERAPIST IN ROOM. GIVING PATIENT A SHOWER.
[2019-05-06 19:46] VITALS: BP 83/56
--- NOTE | 2019-05-06 19:54 | NUR ---
PT IS RESTING IN BED WITH EYES OPEN. ALERT AND ORIENTED X 3. DENIES ANY DISCOMFORT AT THIS TIME. NO NEEDS VOICED. RIGHT SIDE IS ALMOST FLACCID, BUT PT DOES HAVE SOME ROM IN HIS ARM. SR'S ARE UP X 3 IN BED. CALL LIGHT AND BEDSIDE TABLE ARE WITHIN EASY REACH.
--- NOTE | 2019-05-06 21:38 | NUR ---
PT RESTING IN BED WITH EYES CLOSED. NO ACUTE DISTRESS NOTED.
--- NOTE | 2019-05-07 00:10 | NUR ---
I have reviewed this patient and I concur with the Shift Assessment completed by the Licensed Practical Nurse today this shift.
--- NOTE | 2019-05-07 01:39 | NUR ---
RESTING QUIETLY IN BED WITH EYES CLOSED. USING URINAL PRN.
--- NOTE | 2019-05-07 04:37 | NUR ---
PT RESTING QUIETLY IN BED WITH EYES CLOSED.
[2019-05-07 08:00] VITALS: BP 106/69
--- NOTE | 2019-05-07 08:00 | NUR ---
SHIFT ASSMT COMPLETED.
--- NOTE | 2019-05-07 12:00 | NUR ---
EATING LUNCH SITTING UP IN CHAIR.CL IN REACH.
--- NOTE | 2019-05-07 16:00 | NUR ---
RESTING IN BED.DENIES NEEDS.WILL CONTINUE TO MONITOR.
[2019-05-07 19:45] VITALS: BP 91/51
--- NOTE | 2019-05-07 19:49 | NUR ---
PT IS RESTING IN BED WITH EYES OPEN. ALERT AND ORIENTED X 3. DENIES ACUTE PAIN OR DISCOMFORT AT THIS TIME. INC. CARE AND TOTAL LINEN CHANGE DONE AT THIS TIME. PT IS REFUSING TO WEAR BRACE TO RIGHT LEG. VSS. SR'S ARE UP X 3 IN BED. CALL LIGHT AND BEDSIDE TABLE ARE WITHIN EASY REACH.
--- NOTE | 2019-05-07 21:54 | NUR ---
PT RESTING IN BED WITH EYES CLOSED. NO ACUTE DISTRESS NOTED.
--- NOTE | 2019-05-07 23:11 | NUR ---
I have reviewed this patient and I concur with the Shift Assessment completed by the Licensed Practical Nurse today this shift.
--- NOTE | 2019-05-08 01:09 | NUR ---
RESTING IN BED WITH EYES CLOSED. NO DISTRESS NOTED.
--- NOTE | 2019-05-08 06:05 | NUR ---
PT RESTING IN BED WITH EYES CLOSED. AWOKE EASILY TO VERBAL STIMULI. INC. CARE AND BEDPAD CHANGE DONE.
[2019-05-08 08:00] VITALS: BP 96/61
--- NOTE | 2019-05-08 08:00 | NUR ---
SHIFT ASSMT COMPLETED.STATES DRY.DENIES NEEDS.REFUSES ARTICULAR BRACE AT THIS TIME.
--- NOTE | 2019-05-08 12:00 | NUR ---
INCONT URINE.BED,LINENS,GOWN WET.BRACE PLACED ON RT KNEE.TAKEN TO BATHROOM.MOD ASSIST.CLEANED AND DRIED.LINEN CHUCKS REPLACED.CLEAN DRY GOWN PUT ON.PLACED BACK IN BED.LUNCH GIVEN.
--- NOTE | 2019-05-08 19:34 | NUR ---
GREETED PATIENT AND INTRODUCED MYSELF. PATIENT IS LAYING IN BED WATCHING TV. RESPIRAITONS EVEN. NO S/S OF DISTRESS. DENIES ANY PAIN AT THIS TIME. DENIES ANY FURTHER NEEDS AT THIS TIME. CALL LIGHT IN REACH.
[2019-05-08 19:35] VITALS: BP 105/69
--- NOTE | 2019-05-09 01:04 | NUR ---
PT. RESTING QUIETLY WITH EYES CLOSED. RESPIRATIONS EVEN. NO S/S OF DISTRESS. SR UP X 2. BED IN LOWEST POSITION. CALL LIGHT IN REACH.
[2019-05-09 07:11] LABS: BASOPHILS 0.4 % (0-2); EOSINOPHILS 2.3 % (0-7); HEMATOCRIT 40.1 % (42.0-54.0); HEMOGLOBIN 13.3 g/dL (13.5-17.5); IMMATURE GRANULOCYTES 0.1 % (0-5); LYMPHOCYTES 28.6 % (15-50); MCH 32.5 pg (26.0-34.0); MCHC 33.2 g/dL (31.0-37.0); MEAN PLATELET VOLUME 10.3 fL (7.4-10.4); NEUTROPHILS 60.6 % (40-80); PLATELET COUNT 315 10x3/uL (130-400); RBC 4.09 10x6/uL (4.20-6.10); RDW 13.9 % (11.5-14.5); WBC 7.3 10x3/uL (4.8-10.8)
[2019-05-09 07:46] LABS: CALC OSMOLALITY 280 mosm/kg (275-300); CARBON DIOXIDE 28.3 mmol/L (21.0-32.0); CHLORIDE - SERUM 104 mmol/L (98-107); CREATININE - SERUM 0.7 mg/dL (0.6-1.3); GLUCOSE 95 mg/dL (74-106); SODIUM 139 mmol/L (136-145); UREA NITROGEN 21 mg/dL (7-18); eGFR NON AFRICAN AMERICAN > 90 mL/min (90-120)
[2019-05-09 08:03] VITALS: BP 110/72
--- NOTE | 2019-05-09 10:55 | NUR ---
LAYING DOWN IN BED, EYES CLOSED. NO S/S DISTRESS. BRACE ON RLE. CALL LIGHT IN REACH
--- NOTE | 2019-05-09 14:10 | NUR ---
Nutrition Follow-up: Chart reviewed. Diet: Regular + Ensure with meals PO intake: 100% x last 5 meals; reports good appetite. Labs, meds, and skin assessment reviewed. Last wt: 160# (04/29/19), no new. Last BM 05/06/19. Continue current nutrition regimen. RD Following
--- NOTE | 2019-05-09 19:43 | NUR ---
PT IS RESTING IN BED WITH EYES OPEN. ALERT AND ORIENTED X 3. DENIES ACUTE DISCOMFORT AT THIS TIME. INC. CARE GIVEN. SR'S ARE UP X 2 IN BED. CALL LIGHT AND BEDSIDE TABLE ARE WITHIN EASY REACH.
[2019-05-09 21:02] VITALS: BP 108/75
--- NOTE | 2019-05-09 22:05 | NUR ---
PT RESTING IN BED WITH EYES CLOSED. NO ACUTE DISTRESS NOTED.
--- NOTE | 2019-05-09 23:21 | NUR ---
QUIET HOURS. PT LYING IN BED SUPINE EYES CLOSED RESTING QUIETLY. CL IN REACH
--- NOTE | 2019-05-10 02:15 | NUR ---
PT IS RESTING QUIETLY IN BED WITH EYES CLOSED. RESPS ARE EVEN AND UNLABORED. NO ACUTE DISTRESS NOTED.
--- NOTE | 2019-05-10 03:28 | NUR ---
I have reviewed this patient and I concur with the Shift Assessment completed by the Licensed Practical Nurse today this shift.
[2019-05-10 07:57] VITALS: BP 110/68
--- NOTE | 2019-05-10 19:35 | NUR ---
PT LYING IN BED. CL IN REACH. LIGHTS OFF. WAKES TO VERBAL STIMULI. BED IN LOW SIDE RAILS X2. A/O X4. DENIES NEEDS AT THIS TIME. RESP EVEN AND UNLABORED. WCTM
[2019-05-10 20:56] VITALS: BP 97/60
--- NOTE | 2019-05-11 00:07 | NUR ---
QUIET HOURS. PT LYING IN BED EYES CLOSED RESTING QUIETLY. NO SIGNS OF ACUTE DISTRESS NOTED. CL IN REACH
--- NOTE | 2019-05-11 06:22 | NUR ---
CHANGED PT DUE TO INCONT. DENIES NEEDS. CL IN REACH. WCTM
--- NOTE | 2019-05-11 08:00 | NUR ---
SHIFT ASSMT COMPLETED.BREAKFAST GIVEN.DENIES NEEDS.
[2019-05-11 08:08] VITALS: BP 107/71
--- NOTE | 2019-05-11 14:52 | NUR ---
WILL CONTINUE TO MONITOR
--- NOTE | 2019-05-11 16:32 | NUR ---
CARE TEAM MEETING: PATIENT IS DOING WELL IN THERAPY TENATIVE DISCHARGE DATE IS 05/13/19. WILL CONTINUE TO FOLLOW WITH PATIENT
--- NOTE | 2019-05-11 19:22 | NUR ---
GREETED PATIENT AND INTRODUCED MYSELF HIS NURSE. PATIENT IS LAYING IN BED WATCHING TV. RESPIRAITONS EVEN. NO S/S OF DISTRESS. STATES THAT NO PAIN IN RIGHT KNEE AT THIS TIME. DENIES ANY FURTHER NEEDS. CALL LIGHT IN REACH.
[2019-05-11 20:37] VITALS: BP 99/61
--- NOTE | 2019-05-11 23:47 | NUR ---
PT. AWAKE LAYING IN BED IN SUPINE POSITION WATCHING TV. DENIES ANY NEEDS AT THIS TIME. CALL LIGHT IN REACH.
--- NOTE | 2019-05-12 06:21 | NUR ---
PT. AWAKE LAYING IN BED WATCHING TV. RESPIRATIONS EVEN. NO S/S OF DISTRESS. PT. DENIES ANY NEEDS AT THIS TIME. CALL LIGHT IN REACH.
--- NOTE | 2019-05-12 08:06 | NUR ---
PT RESTING IN BED WITH EYES OPEN CALL LIGHT IN REACH WILL MONITER
[2019-05-12 08:28] VITALS: BP 113/76
--- NOTE | 2019-05-12 16:13 | NUR ---
PT RESTING IN BED WITH EYES OPEN CALL LIGHT IN REACH WILL MONITER
--- NOTE | 2019-05-12 19:29 | NUR ---
GREETED PATIENT AND INTRODUCED MYSELF HIS NURSE. PATIENT IS LAYING IN BED WATCHING TV. RESPIRATIONS EVEN. NO S/S OF DISTRESS. DENIES ANY EVIDENCE OF PAIN AT THIS TIME. CALL LIGHT IN REACH.
[2019-05-12 20:00] VITALS: BP 91/57
--- NOTE | 2019-05-13 00:34 | NUR ---
PT. AWAKE AND WATCHING TV. DENIES ANY NEEDS AT THIS TIME. CALL LIGHT IN REACH.
[2019-05-13 06:20] LABS: BASOPHILS 0.6 % (0-2); EOSINOPHILS 2.4 % (0-7); HEMATOCRIT 39.5 % (42.0-54.0); HEMOGLOBIN 13.1 g/dL (13.5-17.5); IMMATURE GRANULOCYTES 0.1 % (0-5); LYMPHOCYTES 30.4 % (15-50); MCH 32.7 pg (26.0-34.0); MCHC 33.2 g/dL (31.0-37.0); MCV 98.5 fL (80.0-100.0); MEAN PLATELET VOLUME 9.8 fL (7.4-10.4); MONOCYTES 7.9 % (2-11); NEUTROPHILS 58.6 % (40-80); PLATELET COUNT 256 10x3/uL (130-400); RBC 4.01 10x6/uL (4.20-6.10); RDW 13.9 % (11.5-14.5); WBC 7.1 10x3/uL (4.8-10.8)
[2019-05-13 06:47] LABS: CALC OSMOLALITY 280 mosm/kg (275-300); CARBON DIOXIDE 28.3 mmol/L (21.0-32.0); CHLORIDE - SERUM 104 mmol/L (98-107); CREATININE - SERUM 0.7 mg/dL (0.6-1.3); GLUCOSE 95 mg/dL (74-106); POTASSIUM - SERUM 4.2 mmol/L (3.5-5.1); SODIUM 139 mmol/L (136-145); UREA NITROGEN 22 mg/dL (7-18); eGFR NON AFRICAN AMERICAN > 90 mL/min (90-120)
[2019-05-13 08:00] VITALS: BP 111/61
--- NOTE | 2019-05-13 09:45 | NUR ---
PATIENT DISCHARGING HOME TODAY WITH FAMILY. [facility] WILL PROVIDE THERAPY AT HOME. NO NEW DME NEEDED AT THIS TIME. DR. PATEL 05/19/19 @ 2:00, DR. BILLINGSLEY 05/17/19 @ 9:45. PATIENT CHOICE FORM AND IMFM FORMS SIGNED, COPY GIEN TO PATIENT AND FILED IN CHART. DISCHARGE INSTRUCTIONS FAXED TO PCP, HOME HEALTH AND REVIEWED WITH PATIENT
[2019-05-13] MEDS ORDERED: NORVASC2.5 MG PO (10:50)
[2019-05-13] MEDS ORDERED: COLACE100 MG PO (10:50)
[2019-05-13] MEDS ORDERED: MIRALAX17 GM PO (10:51)
[2019-05-13] MEDS ORDERED: ACETAMINOPHEN500 M1 PO (10:51)
--- NOTE | 2019-05-13 12:17 | NUR ---
PT RESTING IN BED WITH EYES OPEN CALL LIGHT IN REACH WILL MONITER
--- NOTE | 2019-05-13 12:49 | NUR ---
NUTRITION FOLLOW UP: Patient stated that his appetite has been good. He denied N/V/D/C, denied any new chewing/swallowing issues, and denied pain. He states he drinks one Ensure per day DIET: Regular diet, Ensure TID PO INTAKE: 67% avg x 9 meals WT: 160 lbs (no new wt since 04/29) BM: x 1 on 05/11 SIG MEDS: Colace SIG LABS: BUN-22(H) GOALS: Obtain new weight PO intake >/= 75% for meals BM q 3 days Stable wt DHS Will continue to monitor closely DHS. Clinical dietitian following.
--- NOTE | 2019-05-13 14:00 | NUR ---
PT DISCHARGED TO HOME VIA WHEELCHAIR WITH SON PT DISCHARGE SUMMARY AND MEDS REVIEWED WITH PT FLORY VIRAMONTES
--- NOTE | 2019-05-18 09:12 | RHP ---
PATIENT: MILLA PANDEY MEDICAL RECORD: [id number] ACCOUNT: [id number] LOCATION:[id number] : 54 ADMISSION DATE: 04/28/19 REHABILITATION HISTORY AND PHYSICAL EXAMINATION POST ADMISSION PHYSICIAN EXAMINATION DATE OF ADMISSION: 04/28/2019 ADMITTING DIAGNOSIS: Debility. HISTORY OF PRESENT ILLNESS: The patient is a gentleman who was admitted to the rehab secondary to a recent fall with a right lateral tibial plateau fracture with mild depression. He is a 69-year-old gentleman who was brought to the doctor by his daughter with inability to bear weight on his right lower extremity. He was a direct admit to [facility] acute [facility] hospital for further workup. On 04/23/2019, he was trying to get into his car, somehow he slipped, but did not fall, but not all the way to the ground. The patient has had a stroke in 2014. He has got very little use of his right arm and leg and wears an AFO. Since 2004, he has not really been able to bear weight on his right leg. CT of his tib-fib because plain film x-rays were not really able to be done because of his weakness and his ability to be x-rayed did show a severely osteopenic bones and there was acute fractures of the lateral tibial plateau and proximal fibular head. Surgical intervention is really not indicated at this time. He will need an articulated knee brace with toe-touch weightbearing to right lower extremity. He has acute pain. Telemetry showed a controlled AFib. He has got no history of this in the past. He has got right hemiparesis, deconditioning, debility, impaired gait, impaired mobility, high fall risk and self-care deficits. These are all barriers to his discharge. Lives at home alone and uses a cane, a wheelchair and still drives himself. Currently set up for mod assist with his ADLs, mod assist with his mobility. Currently, his daughter is here from [place] visiting and will be here until 05/29/2019 and we will assist him at the time of discharge and also hopefully get him set up for home health. COMORBIDITIES: Include a history of hypertension, history of depression, new onset AFib, proximal fibular fracture, old CVA with right-sided weakness and acute pain. PAST MEDICAL HISTORY: Significant for CVA with significant deficits on his right, history of depression, hypertension, former tobacco use, urinary incontinence. PAST SURGICAL HISTORY: Includes foot surgery, arm surgery, he has had right hip fracture and surgery repair. ALLERGIES: No known drug allergies. CURRENT MEDICATIONS: Include Celexa 40 mg daily. He is on Norvasc 10 mg daily, [place] 1 tab q.4 hours p.r.n., and MiraLax 17 grams daily. HABITS: No current alcohol or tobacco use. FAMILY HISTORY: Noncontributory. SOCIAL HISTORY: The patient hopes to return back home and get back to his prior level of functioning. HISTORY AND PHYSICAL [id number] MILLA PANDEY REVIEW OF SYSTEMS: GENERAL: Does complain of a little bit of weakness. HEENT: He denies cold, cough, or congestion. CARDIOVASCULAR: Denies chest pain. PHYSICAL EXAMINATION: VITAL SIGNS: Stable, afebrile. GENERAL: A well-developed gentleman, in no acute distress, alert upon exam. HEENT: Normocephalic and atraumatic. Mucosa moist. NECK: Supple. No lymphadenopathy. LUNGS: Clear at this time. No wheezing or rales. HEART: Regular rate and rhythm. No murmurs, rubs or gallops. ABDOMEN: Soft, benign, and nondistended. Positive bowel sounds times 4. EXTREMITIES: Does have changes with contracture in his right arm. NEUROLOGIC: Once again, he has changes consistent from a previous CVA. LABORATORY DATA: Show a white count 7.7, H&H 13 and 39, and platelet count is 296. His sodium is 140, potassium 4.2, BUN and creatinine of 13 and 0.7, and blood sugar is 104. ASSESSMENT: This is a 69-year-old gentleman admitted to the rehab with a working diagnosis of debility secondary to tibial plateau fracture, which is nonsurgical. The patient has potential to make improvement. We instituted the following multidisciplinary therapies include, but not limited to physical, occupational, respiratory, speech, nutritional services, prosthetics and orthotics. Given his complex medical condition and risk for more complications, rehabilitation services cannot be provided at a low level of care such as skilled nurse facility. PLAN: 1. Admit to [facility] for intensive inpatient therapy to include the following disciplines: A. Physical therapy to improve gait, all transfer skills and bed mobility to a modified independent level. B. Occupational therapy to improve activities of daily living to a modified independent level. C. Case management to assist with discharge planning and placement options. D. Nutrition to assist with nutritional needs. E. Rehabilitation nursing to assist in monitoring the patient's underlying medical conditions and to assist with any type of bowel or bladder management. 2. The patient's current medication and medical care will be continued. 3. The patient will be placed on standard fall precautions. 4. The patient's estimated length of stay is approximately 7-10 days. 5. We will discuss this patient during care team staff meeting this week. TRANSINT:[id number] Voice Confirmation ID: [id number] DOCUMENT ID: [id number] SUELLEN notes whether there has been none or any medical/functional change since admission: - No change since prescreen. SUELLEN attests patient continues to be appropriate for IRF: HISTORY AND PHYSICAL [id number] MILLA PANDEY - Continues to be appropriate. HAFSA LUGO MD at 0912 CC: [id number] DICTATION DATE: 04/29/19 0850 SOCIAL SCIENCES DEPARTMENT CHAIR: 04/29/19 1039 DIS IN 05/13/19 [facility] [address] [place] [address]
== END 2019-05-13 17:38 | disposition home health service (06) | DRG 948 ==
LOC: D.REHAB 13:57
PROVIDERS: ADMIT Emergency Medicine; ATTEND Emergency Medicine
DX: R53.81 Other malaise (principal); I69.351 Hemiplegia and hemiparesis following cerebral infarction affecting right dominant side; S82.141D Displaced bicondylar fracture of right tibia, subsequent encounter for closed fracture with routine healing; I10 Essential (primary) hypertension; I48.91 Unspecified atrial fibrillation